=== PATIENT | female | born 2000 | race Hispanic/Latino ===

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

== ENCOUNTER 2020-09-29 11:37 | Emergency (ER) | payer MEDICAID, OTHER ==
[~2020-09-29] VITALS: Ht 149.9 cm; Wt 47.6 kg
[~2020-09-29 11:37] MED LIST: ESCI5TAB PO
[2020-09-29 11:40] VITALS: BP 178/83
[2020-09-29 12:00] LABS: BILIRUBIN,URINE NEGATIVE (NEGATIVE); COLOR,URINE YELLOW (YELLOW); GLUCOSE, URINE (UA) NEGATIVE (NEGATIVE); KETONES,URINE >=80 mg/dL (NEGATIVE); LEUKOCYTE ESTERASE ,URINE LARGE (NEGATIVE); NITRATE,URINE POSITIVE (NEGATIVE); OCCULT BLOOD,URINE TRACE-INTACT (NEGATIVE); PROTEIN,URINE NEGATIVE (NEGATIVE); UROBILINOGEN,URINE 0.2 mg/dL (0.2-1.0)
[2020-09-29] MEDS ORDERED: PROCHLORPERAZINE 10MG/2ML INJ IV ONE (12:00)
[2020-09-29 12:02] LABS: APPEARANCE,URINE CLOUDY (CLEAR)
[2020-09-29 12:13] LABS: BACTERIA,URINE Moderate /HPF (None Seen); RBC,URINE 0-1 /HPF (0-1)
[2020-09-29] MEDS ORDERED: CEFTRIAXONE 2GM VIAL IVP ONE (12:30)
[2020-09-29] MEDS ORDERED: PROCHLORPERAZINE EDISYLATE 5 MG/ML 2 ML VIAL IVP SCH (12:30)
[2020-09-29] MEDS ORDERED: 0.9%NACL 1000ML 1,000 ML IV ONE (12:30)
[2020-09-29] MEDS ORDERED: KETOROLAC 30MG VIAL (30MG/ML) IV ONE (12:30)
[2020-09-29 12:43] LABS: BASOPHILS % (AUTO) 0.2 % (0.0-5.0); HEMATOCRIT 43.8 % (36-48); LYMPHOCYTES % (AUTO) 10.5 % (21.0-51.0); MEAN CORPUSCULAR HEMOGLOBIN 24.9 pg (27.0-33.0); MEAN CORPUSCULAR HGB CONC 31.5 g/dL (32.0-36.0); MEAN CORPUSCULAR VOLUME 79.1 fL (80-100); MONOCYTES % (AUTO) 8.7 % (3.0-13.0); NEUTROPHILS % (AUTO) 80.2 % (40.0-77.0); PLATELET COUNT (AUTO) 228 K/uL (130-400); RED BLOOD CELL COUNT(AUTO) 5.54 MIL/uL (4.00-5.50); RED CELL DISTRIBUTION WIDTH 15.6 % (11.0-15.5); WHITE BLOOD COUNT (AUTO) 11.2 K/uL (4.8-10.8)
[2020-09-29] MEDS ORDERED: 0.9%NACL 50ML 50 ML IV ONE (12:46)
[2020-09-29 12:51] LABS: CREATININE 0.8 mg/dL (0.5-1.5)
[2020-09-29] MEDS ORDERED: PROCHLORPERAZINE 10MG/2ML INJ ONE (12:53)
[2020-09-29 12:58] LABS: ALBUMIN 4.5 g/dL (3.5-5.0); BILIRUBIN,TOTAL 0.7 mg/dL (0.2-1.0); TOTAL PROTEIN, SERUM 8.7 g/dL (6.0-8.3)
[2020-09-29 13:11] VITALS: BP 109/70
[2020-09-29] MEDS ORDERED: CEPH500B PO (14:19)
[2020-09-29 16:08] VITALS: BP 113/86
== END 2020-09-29 16:09 | disposition home or self-care (01) ==
LOC: EDH 11:37
DX: N12 Tubulo-interstitial nephritis, not specified as acute or chronic (principal); R11.2 Nausea with vomiting, unspecified; R42 Dizziness and giddiness; J45.909 Unspecified asthma, uncomplicated; Z79.899 Other long term (current) drug therapy
CPT/HCPCS: 36415; 74176; 80053; 81001; 81025; 85025; 87077; 87088; 87186; 96361; 96374; 96375; 99284; J0696; J0780 ×2; J1885; J7030

== ENCOUNTER 2023-04-07 14:55 | Emergency (ER) | payer BC, OTHER ==
[~2023-04-07] VITALS: Ht 149.9 cm; Wt 48.1 kg
[~2023-04-07 14:55] MED LIST changes: +CEPH500B PO
[2023-04-07 15:12] VITALS: BP 102/56; PULSE 102; RESP 16
[2023-04-07 16:29] LABS: RAPID GROUP A STREP negative (NEGATIVE)
[2023-04-07 16:42] LABS: INFLUENZA TYPE A Negative For Type A (NEGATIVE); INFLUENZA TYPE B Negative For Type B (NEGATIVE)
[2023-04-07 16:43] LABS: SARS-CoV-2, RNA, NAAT POSITIVE SARS CoV-2 (NEGATIVE)
== END 2023-04-07 17:38 | disposition left against medical advice (07) ==
LOC: EDH 14:55
DX: O26.892 Other specified pregnancy related conditions, second trimester (principal); R50.9 Fever, unspecified; Z53.21 Procedure and treatment not carried out due to patient leaving prior to being seen by health care provider; Z20.822 Contact with and (suspected) exposure to COVID-19
CPT/HCPCS: 87635; 87804; 87880; 99281

== ENCOUNTER 2023-09-28 09:47 | Inpatient (IN) | payer BC, MEDICAID ==
[~2023-09-28] VITALS: Ht 152.4 cm; Wt 57.2 kg
[2023-09-28 10:51] LABS: HEMATOCRIT 26.1 % (36-48); MEAN CORPUSCULAR HEMOGLOBIN 18.2 pg (27.0-33.0); MEAN CORPUSCULAR HGB CONC 29.1 g/dL (32.0-36.0); MEAN CORPUSCULAR VOLUME 62.4 fL (79-99); NUCLEATED RED BLOOD CELLS 0.3 % (0.0-0.19); PLATELET COUNT (AUTO) 155 K/uL (130-400); RED BLOOD CELL COUNT(AUTO) 4.18 MIL/uL (4.00-5.50); RED CELL DISTRIBUTION WIDTH 17.7 % (11.0-15.5)
[2023-09-28] MEDS: AMPICILLIN 2GM+NS 100ML 100 ML IV SCH (10:53)
[2023-09-28] MEDS ORDERED: OXYTOCIN-LR 30 UNITS/500ML 500 ML IV SCH ×2 (11:00→12:30)
[2023-09-28] MEDS: AMPICILLIN 1GM+NS 50ML 50 ML IV SCH (11:00)
[2023-09-28] MEDS: LACTATED RINGERS 1000ML 1,000 ML IV PRN (11:37)
[2023-09-28] MEDS: MEPERIDINE-PF 50 MG/ML SYG IVP PRN (11:38)
[2023-09-28] MEDS: PROMETHAZINE HCL 25 MG/ML 1ML AMPULE IM PRN (11:39)
[2023-09-28 11:52] LABS: APPEARANCE,URINE CLEAR (CLEAR); BILIRUBIN,URINE NEGATIVE (NEGATIVE); COLOR,URINE COLORLESS (YELLOW); GLUCOSE, URINE (UA) NEGATIVE (NEGATIVE); KETONES,URINE NEGATIVE (NEGATIVE); LEUKOCYTE ESTERASE ,URINE NEGATIVE Leu/uL (NEGATIVE); NITRATE,URINE NEGATIVE (NEGATIVE); OCCULT BLOOD,URINE NEGATIVE (NEGATIVE); PH,URINE 7.5 (5.0-8.0); PROTEIN,URINE NEGATIVE (NEGATIVE); UROBILINOGEN,URINE 0.2 mg/dL (0.2-1.0)
[2023-09-28 12:03] LABS: ADD UA MICROSCOPIC NO
[2023-09-28] MEDS ORDERED: EPHEDRINE SULFATE 50 MG/ML AMPULE IVP PRN (12:30)
[2023-09-28] MEDS ORDERED: ROPIVACAINE 0.2% 2MG/ML 100ML VIAL EP SCH (12:30)
[2023-09-28] MEDS ORDERED: LACTATED RINGERS 500 ML 500 ML IV PRN (12:30)
[2023-09-28] MEDS ORDERED: NALOXONE HCL 0.4 MG/1 ML ML IV PRN (12:30)
[2023-09-28] MEDS ORDERED: CEFAZOLIN SODIUM 2 GM VIAL IVPB PRN (13:30)
[2023-09-28] MEDS ORDERED: OXYTOCIN 10 UNIT/1ML 10ML VIAL ONE (13:50)
[2023-09-28] MEDS ORDERED: DEXAMETHASONE SOD PHOSPHATE 10MG/ML 1ML VIAL ONE (13:50)
[2023-09-28] MEDS ORDERED: ONDANSETRON 4MG INJ ONE (13:50)
[2023-09-28] MEDS ORDERED: MORPHINE PF 100MG/10ML AMP IV ONE (13:51)
[2023-09-28] MEDS ORDERED: FENTANYL CITRATE PF 50 MCG/1 ML 2ML VIAL ONE ×2 (13:51→14:48)
[2023-09-28] MEDS: CITALOPRAM 20 MG TABLET PO SCH (14:00)
[2023-09-28 14:23] LABS: HEMATOCRIT 26.8 % (36-48); MEAN CORPUSCULAR HEMOGLOBIN 18.8 pg (27.0-33.0); MEAN CORPUSCULAR HGB CONC 28.4 g/dL (32.0-36.0); MEAN CORPUSCULAR VOLUME 66.2 fL (79-99); NUCLEATED RED BLOOD CELLS 0.3 % (0.0-0.19); PLATELET COUNT (AUTO) 150 K/uL (130-400); RED BLOOD CELL COUNT(AUTO) 4.05 MIL/uL (4.00-5.50); RED CELL DISTRIBUTION WIDTH 18.1 % (11.0-15.5); WHITE BLOOD COUNT (AUTO) 10.2 K/uL (4.8-10.8)
[2023-09-28] MEDS: CEFAZOLIN SODIUM 2 GM VIAL IVPB ONE (14:26)
[2023-09-28] MEDS ORDERED: KETAMINE HCL 100 MG/ML 5ML VIAL IJ ONE (14:35)
[2023-09-28] MEDS ORDERED: PROPOFOL 10 MG/ML 20ML VIAL IV ONE (14:39)
[2023-09-28 14:44] LABS: HIV 1&2 ANTIBODY Non-Reactive (Negative); HIV-1 p24 Antigen Non-Reactive (Negative)
[2023-09-28] MEDS ORDERED: ROCURONIUM BROMIDE 10MG/1ML 5ML VL ONE (14:51)
[2023-09-28] MEDS ORDERED: GLYCOPYRROLATE 0.2 MG/ML 5 ML VIAL ONE (15:13)
[2023-09-28] MEDS ORDERED: NEOSTIGMINE METHYLSULFATE 1MG/ML IV ONE (15:13)
[2023-09-28] MEDS ORDERED: PROMETHAZINE HCL 25 MG/ML 1ML AMPULE IM PRN (15:30)
[2023-09-28] MEDS ORDERED: MEPERIDINE-PF 75 MG/ML SYG IM PRN (15:30)
[2023-09-28] MEDS ORDERED: 0.9%NACL 10ML VIAL IVP PRN (15:30)
[2023-09-28] MEDS ORDERED: OXYTOCIN-LR 30 UNITS/500ML 500 ML IV PRN (15:30)
[2023-09-28] MEDS ORDERED: DEXTROSE 5 %-0.45 % NACL 1,000 ML IV PRN (15:30)
[2023-09-28] MEDS: CALDOLOR 800MG+NS 250ML 250 ML IV PRN (16:00)
[2023-09-28] MEDS: LACTATED RINGERS 1000ML 1,000 ML IV SCH ×2 (16:02→21:03)
[2023-09-28 17:38] LABS: HEMATOCRIT 31.7 % (36-48)
[2023-09-28 18:00] VITALS: BP 147/85; PULSE 67; RESP 18
[2023-09-28 19:35] VITALS: BP 146/103; PULSE 61; RESP 20
[2023-09-28] MEDS ORDERED: CALCIUM GLUC 1GM/10ML VIAL IV PRN (20:30)
[2023-09-28] MEDS ORDERED: PNV11TAB5 PO (20:35)
[2023-09-28] MEDS ORDERED: FERS325 PO (20:35)
[2023-09-28] MEDS: MAGNESIUM 4GM PREMIX 100ML 100 ML IV PRN (20:36)
[2023-09-28] MEDS: MAGNESIUM SULFATE 40GM/1000ML 1,000 ML IV PRN (20:56)
[2023-09-28 21:01] LABS: AMPHET/METH SCREEN,URINE NEGATIVE (NEGATIVE); BARBITURATE SCREEN, URINE NEGATIVE (NEGATIVE); BENZODIAZEPINES SCREEN,URINE NEGATIVE (NEGATIVE); CANNABINOID SCREEN,URINE NEGATIVE (NEGATIVE); COCAINE SCREEN,URINE NEGATIVE (NEGATIVE); OPIATE SCREEN,URINE NEGATIVE (NEGATIVE); PHENCYCLIDINE SCREEN,URINE NEGATIVE (NEGATIVE)
[2023-09-28] MEDS: TRANEXAMIC ACID 1000MG/10ML ONE (21:18)
[2023-09-28] MEDS ORDERED: LANOLIN 30GM OINTMENT TP PRN (22:00)
[2023-09-28] MEDS ORDERED: BISACODYL 10 MG SUPP.RECT RC PRN (22:00)
[2023-09-28] MEDS ORDERED: ACETAMINOPHEN 500 MG TABLET PO PRN (22:00)
[2023-09-29] MEDS: ACETAMINOPHEN WITH CODEINE 1 TAB TAB PO PRN (06:14)
[2023-09-29 06:51] LABS: MEAN CORPUSCULAR HEMOGLOBIN 20.8 pg (27.0-33.0); MEAN CORPUSCULAR VOLUME 69.2 fL (79-99); NUCLEATED RED BLOOD CELLS 0.3 % (0.0-0.19); PLATELET COUNT (AUTO) 151 K/uL (130-400); RED BLOOD CELL COUNT(AUTO) 4.19 MIL/uL (4.00-5.50); RED CELL DISTRIBUTION WIDTH 22.7 % (11.0-15.5); WHITE BLOOD COUNT (AUTO) 14.3 K/uL (4.8-10.8)
[2023-09-29] MEDS: DOCUSATE SODIUM 100 MG CAP PO SCH (09:32)
[2023-09-29] MEDS: SIMETHICONE 80 MG TAB.CHEW PO PRN (09:32)
[2023-09-29 10:00] VITALS: BP 114/72; PULSE 73; RESP 18
[2023-09-29 12:20] VITALS: BP 117/56; PULSE 85; RESP 18
[2023-09-29] MEDS: IBUPROFEN 600 MG TABLET PO PRN (12:46)
[2023-09-29 16:00] VITALS: BP 112/70; PULSE 68; RESP 18
[2023-09-29 20:10] VITALS: BP 120/67; PULSE 72; RESP 19
[2023-09-29] MEDS: HYDROCODONE/ACETAMINOPHEN 5/325 MG TAB PO PRN (21:59)
[2023-09-30 00:08] VITALS: BP 123/73; PULSE 70; RESP 19
[2023-09-30 04:07] VITALS: BP 120/63; PULSE 69; RESP 18
[2023-09-30 07:30] VITALS: BP 123/70; PULSE 74; RESP 20
[2023-09-30 11:24] VITALS: BP 118/71; PULSE 69; RESP 18
== END 2023-09-30 13:29 | disposition home or self-care (01) | DRG 788 ==
LOC: EDH 09:47 → LDH 10:04 → OBSVTOIN 10:04 → WSH 18:03 → LDH 20:26 → WSH 09-29 10:31
PROVIDERS: ADMIT Obstetrics & Gynecology; ATTEND Obstetrics & Gynecology
PROC: 10D00Z1 Extraction of Products of Conception, Low, Open Approach (ICD-10-PCS; principal; 2023-09-28 14:00)
PROC: 30233N1 Transfusion of Nonautologous Red Blood Cells into Peripheral Vein, Percutaneous Approach (ICD-10-PCS; 2023-09-29)
DX: O99.824 Streptococcus B carrier state complicating childbirth (principal); O99.02 Anemia complicating childbirth; O76 Abnormality in fetal heart rate and rhythm complicating labor and delivery; O69.81X0 Labor and delivery complicated by cord around neck, without compression, not applicable or unspecified; Z37.0 Single live birth; Z3A.38 38 weeks gestation of pregnancy; F32.A Depression, unspecified; F41.9 Anxiety disorder, unspecified
CPT/HCPCS: 36415; 36430; 59510; 76805; 76819; 80305; 81003; 85014; 85018; 85027; 86592; 86701; 86850; 86900; 86901; 86923; 87340; 87390; A4344; G0378; J0290; J1100; J1741; J2175; J2274; J2405; J2550; J2590; J2704; J2710; J3010; J3475; J3490; J7120; P9016; A4248; C1765; J0690